=== PATIENT | female | born 1940 | race African-American/Black ===

== ENCOUNTER 2019-02-24 07:29 | Day surgery (SDC) | payer MEDICARE, MEDICAID ==
[~2019-02-24] VITALS: Ht 152.4 cm; Wt 52.2 kg
[~2019-02-24 07:29] MED LIST: AMLO10TA4 PO; ATIVAN; ATROVENT INHALER; CRESTOR PO; MIRTAZAPINE; PROAIR INHALER; PROPRANOLOL PO
[2019-02-24] MEDS ORDERED: PHENYLEPHRINE HCL 10% OPHTH DROPS 5ML LEFTEYE SCH (09:00)
[2019-02-24] MEDS ORDERED: TROPICAMIDE 1% OPHTH DROPS 15ML LEFTEYE SCH (09:00)
[2019-02-24] MEDS ORDERED: CYCLOPENTOLATE HCL 1% OPHTH DROPS 2ML LEFTEYE SCH (09:00)
[2019-02-24] MEDS ORDERED: BALANCED SALT IRRIG SOLN 15ML ONE (10:00)
[2019-02-24] MEDS ORDERED: LIDOCAINE HCL/PF 2% 20 MG/ML 10ML VIAL ONE (10:00)
[2019-02-24] MEDS ORDERED: BALANCED SALT IRRIG SOLN COMB1 500ML OP ONE (10:00)
[2019-02-24] MEDS ORDERED: LIDOCAINE HCL 2%/EPINEPHRINE 1:100,000 20 ML VIAL INFIL ONE (10:00)
[2019-02-24] MEDS ORDERED: BUPIVACAINE HCL/PF 0.75% (7.5MG/ML) 10ML ONE (10:00)
[2019-02-24] MEDS ORDERED: CIPROFLOXACIN 0.3% OPHTH SOLN 2.5ML ONE (10:00)
[2019-02-24] MEDS ORDERED: TETRACAINE 0.5% OPHTH DROPS 4ML ONE (10:00)
[2019-02-24] MEDS ORDERED: PREDNISOLONE ACETATE 1% OPHTH DROPS 5ML ONE (10:00)
[2019-02-24] MEDS ORDERED: LACTATED RINGERS 1,000 ML IV SCH (10:15)
[2019-02-24] MEDS ORDERED: MIDAZOLAM HCL 2 MG/2 ML VIAL ONE (13:42)
[2019-02-24] MEDS ORDERED: FENTANYL CITRATE/PF 50MCG/ML 2ML VIAL ONE (13:42)
[2019-02-24] MEDS ORDERED: DIPHENHYDRAMINE 50MG/ML VIAL ONE (13:43)
[2019-02-24] MEDS ORDERED: HYALURONATE SODIUM 14 MG/ML 0.85ML SYRINGE IO ONE (13:48)
[2019-02-24] MEDS ORDERED: TRYPAN BLUE 0.5 ML DISP.SYRIN IO ONE (14:00)
[2019-02-24] MEDS ORDERED: LIDOCAINE HCL/PF 1% 10 MG/ML 5ML VIAL ONE (14:13)
[2019-02-24] MEDS ORDERED: PROPOFOL 200MG/20ML VIAL IV ONE (14:13)
[2019-02-24] MEDS ORDERED: ROCURONIUM BROMIDE 10MG/ML VIAL 5ML IV ONE (14:18)
[2019-02-24] MEDS ORDERED: SODIUM CHLORIDE 0.9% 10ML VIAL ONE (14:19)
[2019-02-24] MEDS ORDERED: PHENYLEPHRINE HCL 10 MG/ML 1ML (IV VIAL) IV ONE (14:19)
[2019-02-24] MEDS ORDERED: ESMOLOL HCL 10MG/ML 10ML VIAL IV ONE (14:19)
[2019-02-24] MEDS ORDERED: DEXAMETHASONE 4MG/ML 1ML VIAL ONE (14:48)
[2019-02-24] MEDS ORDERED: TERBUTALINE SULFATE 1MG/ML VIAL ONE (14:57)
[2019-02-24] MEDS ORDERED: GLYCOPYRROLATE 0.2 MG/ML 2ML VIAL ONE (15:01)
[2019-02-24] MEDS ORDERED: NEOSTIGMINE METHYLSULFATE 1MG/ML 10 ML VIAL ONE (15:01)
== END 2019-02-24 18:40 | disposition home or self-care (01) ==
LOC: OR 07:29
PROVIDERS: ATTEND Ophthalmology
DX: H25.21 Age-related cataract, morgagnian type, right eye (principal); H04.123 Dry eye syndrome of bilateral lacrimal glands; I10 Essential (primary) hypertension; M19.90 Unspecified osteoarthritis, unspecified site; J45.909 Unspecified asthma, uncomplicated; F41.9 Anxiety disorder, unspecified; Z88.0 Allergy status to penicillin; Z79.899 Other long term (current) drug therapy
CPT/HCPCS: 66982; 94002; J1100; J1200; J2250; J2370; J2704; J2710; J3010; J3105; J3490; Q9957; V2632